=== PATIENT | male | born 1965 | race Caucasian/White ===

== ENCOUNTER → 2020-01-02 | Outpatient (CLI) | payer OTHER ==
[~2020-01-02] MED LIST: VIBRAMYCIN100 MG PO; VICODIN ES 7501 TAB PO
== END | disposition home or self-care (01) ==
LOC: COVID19 13:53
PROVIDERS: ATTEND Family Medicine
DX: Z20.828 Contact with and (suspected) exposure to other viral communicable diseases (principal)